=== PATIENT | female | born 1960 | race African-American/Black ===

== ENCOUNTER 2018-06-18 15:25 | Outpatient (CLI) | payer BC ==
--- NOTE | 2018-06-23 13:18 | MMO ---
BILATERAL SCREENING MAMMOGRAM: Date: 06/17/18 HISTORY: Screening. COMPARISON: Mammograms from 2014, 2013, and 2010. TECHNIQUE: Bilateral screening CC and MLO mammograms. This patient's mammogram was interpreted with the assistance of computer-aided detection. FINDINGS: There are scattered fibroglandular densities. There is an asymmetry right breast medial one-half, not seen on the prior examinations, nor well seen on the MLO mammogram. Left breast is without abnormal mass, calcifications, or architectural distortion. IMPRESSION: BIRADS 0: Incomplete: Need Additional Imaging Evaluation and/or Prior Mammograms for Comparison The asymmetry right breast middle depth medial one-half requires further investigation. Spot compress ion and ultrasound, if deemed necessary, is recommended. The facility will notify patient of need for additional imaging services. POS: DAY
== END 2018-06-18 15:26 | disposition home or self-care (01) ==
LOC: SCSMAMMO 15:25
PROVIDERS: ATTEND Family Medicine
DX: Z12.31 Encounter for screening mammogram for malignant neoplasm of breast (principal); N64.89 Other specified disorders of breast
CPT/HCPCS: 77067

== ENCOUNTER 2018-06-30 14:22 | Outpatient (CLI) | payer BC | END 2018-06-30 14:23 | disposition home or self-care (01) | LOC: BICMAMMO 14:22 | PROVIDERS: ATTEND Family Medicine | DX: R92.2 Inconclusive mammogram (principal); N63.10 Unspecified lump in the right breast, unspecified quadrant | CPT/HCPCS: G0279 ==